=== PATIENT | female | born 1955 | race Caucasian/White ===

== ENCOUNTER 2021-10-01 11:41 | Emergency (ER) | payer OTHER ==
[~2021-10-01] VITALS: Ht 157.5 cm; Wt 63.5 kg
[2021-10-01 11:41] VITALS: BP 135/91
[2021-10-01] MEDS ORDERED: NAPR-1192 PO (13:24)
--- NOTE | 2021-10-01 14:44 | NUR ---
Patient discharged to home in stable condition. Written and verbal after care instructions given. Patient verbalizes understanding of instruction.
== END 2021-10-01 18:33 | disposition home or self-care (01) ==
LOC: ER 11:49
DX: S82.091A Other fracture of right patella, initial encounter for closed fracture (principal); Z98.890 Other specified postprocedural states; W01.0XXA Fall on same level from slipping, tripping and stumbling without subsequent striking against object, initial encounter; Y93.89 Activity, other specified; Y92.89 Other specified places as the place of occurrence of the external cause; Y99.8 Other external cause status
CPT/HCPCS: 73564-TC